=== PATIENT | female | born 1985 | race Caucasian/White ===

== ENCOUNTER 2016-07-08 14:21 | Emergency (ER) | payer OTHER ==
[2016-07-08 15:57] VITALS: BP 109/67
--- NOTE | 2016-07-08 17:00 | UC ---
Throat Pain/Nasal Kd HPI - HPI Summary HPI Summary: 30 y/o female presents to the urgent clinic c/o sore throat with difficulty swallowing, sinus congestion and clear nasal discharge since yesterday. Patient also states feeling mild diziness and fatigue. Pt reports she has Hx of seasonal allergies. Patient denies SOB, fever, chest pain, N/V/D. she has taking ibuprofen 1200mg PO to alleviate symptoms. - History of Current Complaint Chief Complaint: UCRespiratory Stated Complaint: SORE THROAT,DIZZY, Time Seen by Provider: 07/08/16 16:40 Hx Obtained From: Patient Hx Last Menstrual Period: 06/22/16 ?: No Onset/Duration: Sudden Onset, Lasting Hours, Still Present Severity: Moderate Pain Intensity: 4 - headache Pain Scale Used: 0-10 Numeric Cough: None Associated Signs & Symptoms: Positive: Dysphagia, Sinus Discomfort, Nasal Discharge - white. Negative: Wheezing, Fever, Vomiting, Rash - Epiglottits Risk Factors Epiglottis Risk Factors: Negative - Allergies/Home Medications Allergies/Adverse Reactions: Allergies Allergy/AdvReac Type Severity Reaction Status Date / Time No Known Allergies Allergy Verified 07/08/16 15:52 Home Medications: Home Medications Ibuprofen [Advil] 400 mg PO Q6H PRN 07/08/16 [History Confirmed 07/08/16] PMH/Surg Hx/FS Hx/Imm Hx Previously Healthy: Yes Respiratory History: Other Other Respiratory History: sessonal allergies - Surgical History Surgical History: None - Family History Known Family History: Positive: None - NONCONTRIBUTORY Negative: Hypertension, Diabetes - Social History Alcohol Use: Rare Substance Use Type: None Smoking Status (MU): Never Smoked Tobacco Review of Systems Constitutional: Negative, Fatigue Skin: Negative Eyes: Negative ENT: Sore Throat, Nasal Discharge Respiratory: Negative Cardiovascular: Negative Gastrointestinal: Negative Motor: Negative Neurovascular: Negative Musculoskeletal: Negative Neurological: Negative Psychological: Negative All Other Systems Reviewed And Are Negative: Yes Physical Exam Triage Information Reviewed: Yes Appearance: Well-Appearing, No Pain Distress, Well-Nourished, Obese Vital Signs: Initial Vital Signs Temp 99.3 F 07/08/16 15:54 Pulse 94 07/08/16 15:54 Resp 16 07/08/16 15:54 BP 109/67 07/08/16 15:54 Pulse Ox 100 05/31/17 15:54 Vital Signs Reviewed: Yes Eye Exam: Normal ENT: Positive: Pharyngeal erythema, Nasal congestion - bilateral turbinate swelling, Nasal drainage - clear nasal drainage, TMs normal, Tonsillar swelling , Tonsillar exudate - mild exudates on the left tonsil Dental Exam: Normal Neck exam: Normal Neck: Positive: Supple, Nontender, Enlarged Nodes @ - tenderness on anterior cervical lymphnodes on palpation Respiratory Exam: Normal Respiratory: Positive: Chest non-tender, Lungs clear, Normal breath sounds Cardiovascular Exam: Normal Cardiovascular: Positive: RRR, No Murmur, Pulses Normal Abdominal Exam: Normal Abdomen Description: Positive: Nontender, No Organomegaly, Soft Bowel Sounds: Positive: Present Musculoskeletal Exam: Normal Neurological Exam: Normal Psychological Exam: Normal Skin Exam: Normal Throat Pain/Nasal Course/Dx - Course Course Of Treatment: Pharyngitis: Pharyngeal erythema, Nasal congestion - bilateral turbinate swelling, Nasal drainage - clear nasal drainage, TMs normal , Tonsillar swelling, Tonsillar exudate - mild exudates on the left tonsil. Rapid strep test ordered, result: negative. Pt Rx Ibuprofen, Cetirizine and flonase spray toalleviate symptoms and advised to take medications as instructed and if symptoms worsen she should either follow up with your PCP or return to the urgent care for further evaluation and treatment. - Differential Dx/Diagnosis Differential Diagnosis/HQI/PQRI: Laryngitis, Mononucleosis, Pharyngitis, Sinusitis, Tonsillitis Provider Diagnoses: viral pharyngitis, allergic rhinitis Discharge - Discharge Plan Condition: Stable Disposition: HOME Prescriptions: Cetirizine* [ZyrTEC 10 MG TAB*] 10 mg PO DAILY #14 tab Fluticasone NASAL SPRAY 50MCG* [Flonase NASAL SPRAY 50MCG*] 2 spray BOTH NARES DAILY #1 btl Ibuprofen TAB* [Motrin TAB* 600 MG] 600 mg PO Q6H PRN #20 tab PRN Reason: Pain Patient Education Materials: Pharyngitis (ED), Rhinosinusitis (ED) Forms: *Work Release Referrals: Andre Chopra MD [Primary Care Provider] - Additional Instructions: Please take medications as directed and avoid allergens. If symptoms do not improve or worsen please return to the urgent care or follow up with your PCP for further evaluation and treatment.
== END 2016-07-08 17:41 | disposition home or self-care (01) ==
LOC: UCEAST 14:21
DX: J02.8 Acute pharyngitis due to other specified organisms (principal); B97.89 Other viral agents as the cause of diseases classified elsewhere; J30.9 Allergic rhinitis, unspecified
CPT/HCPCS: 87651; 99212; G0463